=== PATIENT | female | born 1970 | race African-American/Black ===

== ENCOUNTER 2018-09-21 16:46 | Emergency (ER) | payer SELFPAY ==
[~2018-09-21] VITALS: Ht 160 cm; Wt 74.0 kg
[2018-09-21 16:50] VITALS: BP 136/85
[2018-09-21] MEDS ORDERED: MAGNESIUM/ALUMINUM HYDROXIDE/SIMETHICONE 30ML UDC PO ONE (18:00)
[2018-09-21] MEDS ORDERED: DIPHENHYDRAMINE 12.5MG/5ML UDC PO ONE (18:00)
[2018-09-21] MEDS ORDERED: VISCOUS LIDOCAINE 2% 15 ML UDC MM ONE (18:00)
== END 2018-09-21 19:02 | disposition left against medical advice (07) ==
LOC: ER 16:46
DX: K12.0 Recurrent oral aphthae (principal)
CPT/HCPCS: 99284; Q0163